=== PATIENT | male | born 1975 | race Caucasian/White ===

== ENCOUNTER 2019-02-26 15:38 | Emergency (ER) | payer SELFPAY ==
[~2019-02-26] VITALS: Ht 175.3 cm; Wt 88.5 kg
[2019-02-26 16:18] VITALS: BP 148/78
== END 2019-02-26 16:18 | disposition home or self-care (01) ==
LOC: ER 15:38
DX: S16.1XXA Strain of muscle, fascia and tendon at neck level, initial encounter (principal); V49.49XA Driver injured in collision with other motor vehicles in traffic accident, initial encounter; Y93.89 Activity, other specified; Y92.413 State road as the place of occurrence of the external cause; Y99.8 Other external cause status